=== PATIENT | male | born 1995 | race Two or more races ===

== ENCOUNTER 2023-09-10 09:08 | Emergency (ER) | payer MEDICAID, OTHER ==
[~2023-09-10] VITALS: Ht 172.7 cm; Wt 107.5 kg
[2023-09-10 09:54] VITALS: BP 149/92; PULSE 88; RESP 18; TEMP 97.7; O2SAT 98
[2023-09-10] MEDS ORDERED: IBUP-1456 PO (10:44)
[2023-09-10] MEDS ORDERED: ZOFR4T PO (10:44)
== END 2023-09-10 10:52 | disposition home or self-care (01) ==
LOC: ER 09:08
DX: S06.0X0A Concussion without loss of consciousness, initial encounter (principal); S01.01XA Laceration without foreign body of scalp, initial encounter; W22.8XXA Striking against or struck by other objects, initial encounter; Y93.89 Activity, other specified; Y92.89 Other specified places as the place of occurrence of the external cause; Y99.8 Other external cause status
CPT/HCPCS: 70450